=== PATIENT | female | born 1960 | race Two or more races ===

== ENCOUNTER → 2024-09-07 | Emergency (ER) | payer BC ==
[~2024-09-07] VITALS: Ht 154.9 cm; Wt 49.0 kg
[~2024-09-07] MED LIST: LEVOTHYROXINE25 MCG
== END | disposition left against medical advice (07) ==
LOC: ER 13:29
DX: Z53.21 Procedure and treatment not carried out due to patient leaving prior to being seen by health care provider (principal)